=== PATIENT | female | born 1990 | race Caucasian/White ===

== ENCOUNTER 2021-08-27 09:22 | Observation (INO) | payer MEDICAID ==
[~2021-08-27] VITALS: Ht 160 cm; Wt 111.6 kg
[2021-08-27 12:23] LABS: CLARITY URINE CLOUDY (CLEAR); COLOR URINE YELLOW (YELLOW); KETONES URINE NEGATIVE (NEGATIVE); LEUKOCYTE ESTERASE URINE 3+ (NEGATIVE); NITRITE URINE NEGATIVE (NEGATIVE); OCCULT BLOOD URINE 2+ (NEGATIVE); PH URINE 6.5 (4.5-8.0); PROTEIN URINE 1+ (NEGATIVE); SPECIFIC GRAVITY URINE 1.022 (1.005-1.030)
[2021-08-27] MEDS: CEFAZOLIN 1000MG PREMIX 50 ML IV SCH ×2 (13:46→13:57)
[2021-08-27] MEDS ORDERED: LACTATED RINGERS 1,000 ML IV SCH (14:00)
== END 2021-08-27 15:00 | disposition home or self-care (01) ==
LOC: 8 EST LDRP 09:22
PROVIDERS: ADMIT Obstetrics & Gynecology; ATTEND Obstetrics & Gynecology
DX: O46.93 Antepartum hemorrhage, unspecified, third trimester (principal); Z3A.30 30 weeks gestation of pregnancy; Z79.899 Other long term (current) drug therapy
CPT/HCPCS: 59025; 76805; 76818; 81003; 87086; 96365; 96366; G0378; J0690; 99281; J7120